=== PATIENT | male | born 1980 | race Caucasian/White ===

== ENCOUNTER 2017-06-15 09:59 | Emergency (ER) | payer SELFPAY ==
[2017-06-15 10:08] VITALS: BP 121/86; PULSE 100; RESP 18; TEMP 97.5; O2SAT 98
--- NOTE | 2017-06-15 11:23 | EDPHY ---
General Narrative: CHIEF COMPLAINT: Anxiety HISTORY OF PRESENT ILLNESS: Patient reports anxiety and PTSD with news this morning that he lost 24 of his friends/fellow [employer]. He complains of being very anxious and "wrecked" from this. He reports having baseline anxiety that he does not take any medications for. 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 He is asking for medication to help him "get through this." He denies any recent medications. He denies any suicidal ideation. He denies any homicidal ideation. He denies any recent evaluations or medications. No modifying factors for this. No other associated complaints or modifying factors. REVIEW OF SYSTEMS: Ten systems reviewed and are negative unless otherwise noted in the HPI PCP: [facility] SPECIALISTS: None PAST MEDICAL HISTORY: Reflux, recovering alcoholic 4 year sober, anxiety, PTSD PAST SURGICAL HISTORY: None SOCIAL HISTORY: Nonsmoker. For years over. No drug use. [employer]ILY HISTORY: Noncontributory EXAMINATION General Appearance: Alert, no distress, sleeping when I enter the room Head: normocephalic, atraumatic Eyes: Pupils equal and round, no conjunctival pallor or injection ENT, Mouth: Mucous membranes moist Neck: Normal inspection, supple, non-tender Respiratory: Lungs are clear to auscultation. No wheeze, rhonchi or crackles Cardiovascular: Regular rate. Good signs of perfusion but no murmur Gastrointestinal: Abdomen is soft and nontender Back: non-tender, no bony abnormalities Neurological: GCS 15. A&O, nonfocal, normal gait Skin: Warm and dry, no rash Extremities: Nontender, no pedal edema Psychiatric: Flat affect. Denies SI. Denies HI. Reports anxiety and depression from losing his fellow [employer] DIFFERENTIAL DIAGNOSES: Including but not limited to anxiety, PTSD, depression, drug-seeking MDM: 11:04 a.m. Reports of anxiety, PTSD and acute reaction to loss of fellow [employer]. The patient does not appear anxious but he does appear to be somewhat sad or depressed from this. He denies suicidal ideation to me and to the nurse. 11:10 a.m. I have checked the patient's [employer] prescription history. He has 3 benzodiazepine prescriptions within the past week. When asked him about this he denied this earlier. I am not comfortable providing any further medication as he was not forthcoming with this. He also says he has hydroxyzine home. He does exhibit drug-seeking behavior. I informed him that we will not be providing any further benzodiazepine prescriptions for him. He will need to follow up with his prescribing physician. He is in no acute distress and does not exhibit any signs of withdrawal and does appear to be under the influence of benzodiazepine at this time. He is discharged home stable condition. SUPERVISION: Patient was independently examined, but I discussed the case with my secondary supervising physician Dr. Abraham - History Smoking Status: Never smoked - Objective Vital Signs: Initial Vital Signs Temperature (C) 97.5 F 06/15/17 10:06 Heart Rate 100 06/15/17 10:06 Respiratory Rate 06/15/17 10:06 Blood Pressure 121/86 H 06/15/17 10:06 O2 Sat (%) 98 06/15/17 10:06 O2 Delivery Mode Room Air Allergies/Adverse Reactions: omeprazole Allergy (Intermediate, Verified 06/15/17 10:06) Hives Home Medications: Medication Instructions Recorded Pantoprazole Sodium [Protonix 40mg 40 mg PO 06/15/17 (*)] Departure - Departure Disposition: Home, Routine, Self-Care Clinical Impression: PTSD (post-traumatic stress disorder) Condition: Good Instructions: Post Traumatic Stress Disorder (ED) Additional Instructions: 1. Follow up with primary care physician 2. ED precautions for worsening PTSD, anxiety or depression Referrals: NONE *PRIMARY CARE P,. [Primary Care Provider] - As per Instructions
== END 2017-06-15 11:29 | disposition home or self-care (01) ==
DX: F43.10 Post-traumatic stress disorder, unspecified (principal)